=== PATIENT | female | born 1980 | race Caucasian/White ===

== ENCOUNTER 2017-02-19 07:05 | Inpatient (IN) | payer OTHER ==
[~2017-02-19] VITALS: Ht 167.6 cm; Wt 84.1 kg
[2017-02-19] MEDS ORDERED: LACTATED RINGERS 1,000 ML IV SCH ×2 (14:48→15:00)
[2017-02-19] MEDS ORDERED: OXYTOCIN 30U/ 0.9% NaCL 500ML 500 ML IV SCH (14:48)
[2017-02-19] MEDS ORDERED: METOCLOPRAMIDE 5 MG/ML, 2ML IV ONE (15:00)
[2017-02-19] MEDS ORDERED: OXYTOCIN 30U/ 0.9% NaCL 500ML 500 ML ONE (15:00)
[2017-02-19] MEDS ORDERED: LACTATED RINGERS 1,000 ML IVBOLUS ONE (15:00)
[2017-02-19] MEDS ORDERED: SODIUM CITRATE/CITRIC ACID 30 ML UDC PO ONE (15:00)
[2017-02-19] MEDS ORDERED: SODIUM CITRATE/CITRIC ACID 30 ML UDC ONE (15:00)
[2017-02-19] MEDS ORDERED: METOCLOPRAMIDE 5 MG/ML, 2ML ONE (15:00)
[2017-02-19] MEDS ORDERED: MISOPROSTOL 200 MCG TABLET ONE (15:01)
[2017-02-19 15:13] LABS: HEMATOCRIT 34.2 % (34.6-47.8); HEMOGLOBIN 11.3 g/dL (11.7-16.4); WHITE BLOOD COUNT 8.8 x10^3/uL (3.4-10)
[2017-02-19 15:52] VITALS: BP 106/65
[2017-02-19] MEDS ORDERED: NEWBORN KIT ONE (16:21)
[2017-02-19] MEDS ORDERED: morphine SULFATE/PF 1 MG/ML, 10ML ONE (16:27)
[2017-02-19] MEDS: OXYTOCIN 30U/ 0.9% NaCL 500ML 500 ML IV SCH (18:14)
[2017-02-19] MEDS: LACTATED RINGERS 1,000 ML IV SCH ×2 (18:14)
[2017-02-19] MEDS ORDERED: morphine SULFATE 10 MG/ML, 1ML IVPush PRN ×2 (18:30)
[2017-02-19] MEDS ORDERED: CALCIUM CARBONATE 500 MG TAB.CHEW PO PRN (18:30)
[2017-02-19] MEDS ORDERED: METHYLERGONOVINE 0.2 MG/ML IM PRN (18:30)
[2017-02-19] MEDS ORDERED: MISOPROSTOL 200 MCG TABLET PR PRN (18:30)
[2017-02-19] MEDS ORDERED: SIMETHICONE 80 MG CHEW TAB PO PRN (18:30)
[2017-02-19] MEDS ORDERED: ONDANSETRON 2MG/ML, 2ML IV PRN (18:30)
[2017-02-19] MEDS ORDERED: CARBOPROST TROMETHAMINE 250 MCG/ML, 1ML IM PRN (18:30)
[2017-02-19] MEDS ORDERED: OXYcodone/APAP 5/325MG TABLET PO PRN ×3 (18:30→20:30)
[2017-02-19] MEDS ORDERED: ACETAMINOPHEN 325 MG TABLET PO PRN ×2 (18:30)
[2017-02-19] MEDS ORDERED: PLEASE ENTER ALLERGIES MC SCH ×4 (19:00)
[2017-02-19] MEDS ORDERED: iron PO (19:55)
[2017-02-19] MEDS ORDERED: PNV11TAB5 PO (19:55)
[2017-02-19] MEDS ORDERED: DIPH25CA61 PO (19:55)
[2017-02-19] MEDS ORDERED: NALOXONE 0.4 MG/ML, 1ML IV PRN (20:30)
[2017-02-19] MEDS ORDERED: ONDANSETRON 2MG/ML, 2ML IVPush PRN (20:30)
[2017-02-19] MEDS ORDERED: KETOROLAC 30 MG/1 ML IVPush SCH (20:30)
[2017-02-19] MEDS ORDERED: DIPHENHYDRAMINE 50 MG/ML, 1ML IV PRN (20:30)
[2017-02-19] MEDS ORDERED: HYDROmorphone 1 MG/ML, 1ML IVPush PRN (20:30)
[2017-02-19 20:35] VITALS: BP 127/81
[2017-02-20 01:10] VITALS: BP 120/75
[2017-02-20] MEDS: LACTATED RINGERS 1,000 ML IV SCH ×5 (02:14→18:14)
[2017-02-20] MEDS: OXYTOCIN 30U/ 0.9% NaCL 500ML 500 ML IV SCH ×2 (04:14→14:14)
[2017-02-20 06:17] LABS: HEMATOCRIT 30.2 % (34.6-47.8); HEMOGLOBIN 10.2 g/dL (11.7-16.4); WHITE BLOOD COUNT 9.4 x10^3/uL (3.4-10)
[2017-02-20] MEDS: DOCUSATE 100 MG CAPSULE PO PRN ×2 (07:53→21:53)
[2017-02-20] MEDS: HYDROcodone/APAP 10/325 MG TABLET PO PRN ×3 (07:53→17:22)
[2017-02-20] MEDS: IBUPROFEN 600 MG TABLET PO PRN ×3 (07:53→21:53)
[2017-02-20 08:00] VITALS: BP 113/70
[2017-02-20] MEDS: PRENATAL VIT/IRON/FA 1 EACH TABLET PO SCH (09:01)
[2017-02-20] MEDS: FERROUS GLUCONATE 324 MG TABLET PO SCH ×3 (09:06→21:53)
[2017-02-20 12:00] VITALS: BP 126/86
[2017-02-20 16:00] VITALS: BP 117/78
[2017-02-20] MEDS ORDERED: CEFAZOLIN 1,000 MG ONE (16:46)
[2017-02-20] MEDS ORDERED: EPHEDRINE 50 MG/ML, 1ML ONE (16:46)
[2017-02-20] MEDS ORDERED: PHENYLEPHRINE 10 MG/ML ONE (16:46)
[2017-02-20 20:00] VITALS: BP 107/64
[2017-02-20] MEDS: HYDROcodone/APAP 5/325 TABLET PO PRN (21:53)
[2017-02-21] MEDS: LACTATED RINGERS 1,000 ML IV SCH ×4 (00:14→10:14)
[2017-02-21] MEDS: OXYTOCIN 30U/ 0.9% NaCL 500ML 500 ML IV SCH ×2 (00:14→10:14)
[2017-02-21] MEDS: HYDROcodone/APAP 5/325 TABLET PO PRN ×2 (04:34→08:25)
[2017-02-21] MEDS: IBUPROFEN 600 MG TABLET PO PRN ×2 (04:34→10:12)
[2017-02-21 07:10] VITALS: BP 127/80
[2017-02-21] MEDS: PRENATAL VIT/IRON/FA 1 EACH TABLET PO SCH (08:25)
[2017-02-21] MEDS: DOCUSATE 100 MG CAPSULE PO PRN (08:27)
[2017-02-21] MEDS: FERROUS GLUCONATE 324 MG TABLET PO SCH (08:28)
[2017-02-21] MEDS ORDERED: HYDR-3240 PO (09:28)
[2017-02-21] MEDS ORDERED: IBUP-1222 PO (09:29)
[2017-02-21] MEDS ORDERED: SENN-1 PO (09:30)
[2017-02-21] MEDS ORDERED: FERR324T8 PO (09:31)
[2017-02-21] MEDS: HYDROcodone/APAP 10/325 MG TABLET PO PRN (12:27)
== END 2017-02-21 13:21 | disposition home or self-care (01) | DRG 766 ==
LOC: LDIP 14:46 → 2NW 20:10
PROVIDERS: ADMIT Obstetrics & Gynecology; ATTEND Obstetrics & Gynecology
PROC: 10D00Z1 Extraction of Products of Conception, Low, Open Approach (ICD-10-PCS; principal; 2017-02-19)
DX: O09.523 Supervision of elderly multigravida, third trimester (principal); O99.89 Other specified diseases and conditions complicating pregnancy, childbirth and the puerperium; Z37.0 Single live birth; O34.211 Maternal care for low transverse scar from previous cesarean delivery; Z3A.39 39 weeks gestation of pregnancy
CPT/HCPCS: 36415; 82803; 85025; 86850; 86900; J0690; J1885; J2274; J2370; J2590; J2765; J7120